=== PATIENT | female | born 1975 | race Caucasian/White ===

== ENCOUNTER 2025-02-03 09:21 | Outpatient (CLI) | payer OTHER ==
[~2025-02-03 09:21] MED LIST: ABILIFY2 MG; AZELASTINE; AZITHROMYCIN250 MG; CLARINEX5 MG/TAB; NASONEX17 GM; TRANXENE T-TAB7.5 MG
== END 2025-02-04 09:35 | disposition home or self-care (01) ==
LOC: SONOGRAMA 09:21
PROVIDERS: ATTEND Pathology Anatomic Pathology & Clinical Pathology
DX: D34 Benign neoplasm of thyroid gland (principal); E07.89 Other specified disorders of thyroid; E04.1 Nontoxic single thyroid nodule